=== PATIENT | female | born 1965 | race African-American/Black ===

== ENCOUNTER 2017-11-09 21:13 | Inpatient (IN) | payer MEDICAID, SELFPAY ==
[2017-11-09] MEDS ORDERED: Albuterol Sulfate 2.5 mg/3 ml Neb ONE (21:52)
[2017-11-09] MEDS ORDERED: Albuterol Sulfate 2.5 mg/0.5 ml Neb ONE (21:52)
[2017-11-09 21:55] LABS: Bilirubin Moderate (Negative); Blood, Urine Negative (Negative); Clarity TURBID (Clear); Glucose, Urine (Dipstick) Negative (Negative); Leukocyte Small (Negative); Nitrite Negative (Negative); Protein, Urine (Dipstick) 100 mg/dL (Neg-Trace); Specific Gravity, Urine 1.023 (1.002-1.036); pH, Urine 5.5 (5.0-9.0)
[2017-11-09 21:57] LABS: Bacteria/HPF None Seen HPF (None Seen)
[2017-11-09] MEDS ORDERED: methylPREDNISolone Sod Succ/PF 125 MG/2 ML VIAL ONE (21:57)
[2017-11-09 21:58] LABS: Pathc Cast-AUWi Flag 17.34 (0-2.49)
[2017-11-09 21:59] LABS: Crystals/HPF 2+ AMORPH URATES HPF (Negative); Hyaline Casts/LPF 0-3 HYALINE CAST LPF (0-3 Hyaline); Yeast-All Forms None Seen HPF (None Seen)
[2017-11-09 22:04] LABS: Hemoglobin 12.1 g/dL (12.0-16.0); Mean Corpuscular HGB CONC 30.2 g/dL (32.0-36.0); Mean Corpuscular Hemoglobin 26.9 pg (27.0-31.0); Mean Corpuscular Volume 89.2 fl (81.0-99.0); Mean Platelet Volume 8.3 fL (7.4-10.4); Platelet Count 318 thou/uL (130-400); RBC Distribution Width 14.7 % (11.5-14.5); Red Blood Cell (RBC) Count 4.49 mill/uL (4.20-5.40); White Blood Cell (WBC) Count 30.7 thou/uL (4.8-10.8)
--- NOTE | 2017-11-09 22:09 | RAD ---
CHEST ONE VIEW: 11/09/17 HISTORY: 52-year-old female with history of dyspnea. There is extensive bilateral alveolar parenchymal changes, particularly in the perihilar regions, whi ch certainly could represent bilateral pneumonia. Some degree of bilateral pulmonary edema and pleura l effusions could certainly be present as well. Patient's very large body habitus lowers the sensitiv ity of this study. Heart size is borderline enlarged. IMPRESSION: Extensive, somewhat asymmetric bilateral alveolar parenchymal changes particularly in the perihilar r egions, certainly raising concern for the possibility of extensive bilateral pneumonia. Some degree o f coexistent pulmonary edema and vascular congestion is a consideration as well. Treatment and short term followup recommended. POS: IRINEO
[2017-11-09] MEDS ORDERED: cefTRIAXone\\ROCEPHIN 2 GM in Sodium Chloride 0.9% 100 ML IVPB SCH (22:15)
[2017-11-09 22:16] LABS: ALT (SGPT) 28 U/L (8-55); AST (SGOT) 47 U/L (5-34); Albumin 3.6 g/dL (3.5-5.0); Alkaline Phosphatase 88 U/L (40-150); Anion Gap 14 mmol/L (10-20); BUN (Urea Nitrogen) 63 mg/dL (9.8-20.1); Band 19 % (5-11); Bilirubin, Total 1.4 mg/dL (0.2-1.2); Calc. Creatinine Clearance 0 mL/min (70-130); Calcium 11.8 mg/dL (7.8-10.44); Carbon Dioxide 29 mmol/L (22-29); Chloride 95 mmol/L (98-107); Estimated GFR-MDRD 22; Globulin 5.4 g/dL (2.4-3.5); Glucose 126 mg/dL (70-105); Lymphocytes 6 % (21-51); MDiff Complete? YES; Monocytes 5 % (0-10); Neutrophil 70 % (42-75); Potassium 4.2 mmol/L (3.5-5.1); Sodium 134 mmol/L (136-145)
[2017-11-09] MEDS ORDERED: Azithromycin 500 MG in Sodium Chloride 0.9% 250 ML 250 ML IVPB SCH (23:59)
[2017-11-10] MEDS ORDERED: Guaifenesin DM 100-10/5 ML UDCUP PO PRN (00:56)
[2017-11-10] MEDS ORDERED: Sodium Chloride 0.9% 1,000 ML IV SCH ×3 (01:00→10:15)
[2017-11-10 01:42] VITALS: BMI 53.1
--- NOTE | 2017-11-10 04:36 | HP ---
DATE OF ADMISSION: 11/10/2017 ADMITTING PHYSICIAN: Vladimir Martinez M.D. PRIMARY CARE PHYSICIAN: Tramaine Lyn M.D. CHIEF COMPLAINT: Altered mental status and fever. HISTORY OF PRESENT ILLNESS: The patient is a 52-year-old female brought in by her family for altered mental status. They report that the patient is not responding normally and cannot talk. The patien lidia was seen in the emergency department this past Monday and diagnosed with the flu. She was given a prescription for Tamiflu and was not able to get the prescription filled. She does have a history of asthma and weakness. The patient's family reports that she has not tolerated p.o. intake for appr oximately 4 days. The patient is unable to give an accurate history this is all per family and the e mergency department staff. REVIEW OF SYSTEMS: The following complete review of systems was negative, unless otherwise mentioned in the HPI or below: Constitutional: Weight loss or gain, sense of well-being, ability to conduct usual activities, exerc ise tolerance. Skin/Breast: Rash, itching, changes in hair growth or loss, nail changes, breast lumps, tenderness, swelling, nipple discharge. Eyes: Vision, double vision, tearing, blind spots, pain. ENT/Mouth: Headaches (location, time of onset, duration, precipitating factors), vertigo, lightheade dness, injury. Vision, double vision, tearing, blind spots, pain, nose bleeding, colds, obstruction, discharge, dental difficulties, gingival bleeding, dentures, neck stiffness, pain, tenderness, masses in thyroid or other areas. Cardiovascular: Precordial pain, substernal distress, palpitations, syncope, dyspnea on exertion, or thopnea, nocturnal paroxysmal dyspnea, edema, cyanosis, hypertension, heart murmurs, varicosities, ph lebitis, claudication. Respiratory: Pain, shortness of breath, wheezing, stridor, cough, hemoptysis, fever or night sweats. Gastrointestinal: Poor appetite, dysphagia, indigestion, abdominal pain, heartburn, eructation, naus ea, vomiting, hematemesis, jaundice, constipation, or diarrhea, abnormal stools (carroll-colored, tarry, bloody, greasy, foul smelling), flatulence, hemorrhoids, recent changes in bowel habits. Genitourinary: Urgency, frequency, dysuria, nocturia, hematuria, polyuria, oliguria, unusual (or nicole nge in) color of urine, stones, hesitancy, change in size of stream, dribbling, acute retention or in continence, libido, potency. Musculoskeletal: Pain, swelling, redness or heat of muscles or joints, limitation, of motion, muscul ar weakness, atrophy, cramps. Neurologic/Psychiatric: Convulsions, paralyses, tremor, incoordination, paresthesias, difficulties w ith memory of speech, sensory or motor disturbances, or muscular coordination (ataxia, tremor), emoti onal problems, anxiety, depression, previous psychiatric care, unusual perceptions, hallucinations. Allergy/Immunologic: Skin rash, anemia, bleeding tendency, polydipsia, polyuria, intolerance to heat or cold. PAST MEDICAL HISTORY: The family member denied that the patient had any chronic illnesses. PAST SURGICAL HISTORY: They deny surgical history. PSYCHIATRIC HISTORY: Includes anxiety and depression. SOCIAL HISTORY: Denies alcohol or drug use. No smoking history. FAMILY HISTORY: Unobtainable at this point. HOME MEDICATIONS: None according to family. DRUG ALLERGIES: No known drug allergies. PHYSICAL EXAMINATION: VITAL SIGNS: Temperature 99.0, blood pressure 112/73, pulse 101, respirations 24, satting 93% on 2 l iters. GENERAL: The patient is mildly confused, unable to answer my questions appropriately, morbidly obese . HEENT: Head: Normocephalic, atraumatic. EYES: PERRL. Extraocular muscles intact. ENT: Pharynx normal. Mouth is normal. Nose: There is mucus drainage. NECK: Full range of motion. Trachea midline. CHEST: There are rhonchi and rales present. CARDIOVASCULAR: Sinus tachycardia. No murmurs, regurg, or gallops, difficult exam secondary to body habitus. ABDOMEN: Obese, nontender, hypoactive bowel sounds. EXTREMITIES: No clubbing, cyanosis, 1+ edema bilaterally. NEUROLOGIC: The patient is confused and disoriented. LABORATORY DATA AND IMAGES: CBC shows a white count of 30.7, hemoglobin 12.1, hematocrit 40.1, plate lets 318, bands 19, and lymphocytes 6. CMP shows sodium of 134, potassium 4.2, chloride 95, CO2 of 2 9, BUN 63, creatinine 2.77, glucose 126, calcium 11.8, AST 47, ALT 28, lactic acid 1.3. Urinalysis a mber, turbid with small amount of leukocytes, 100 mg of protein, moderate amount of bilirubin, no ramsey teria. Chest x-ray shows extensive asymmetrical bilateral alveolar parenchymal changes consistent wi th extensive bilateral pneumonia and possible pulmonary edema and vascular congestion. ASSESSMENT: 1. Bilateral pneumonia. 2. Severe sepsis. 3. Acute kidney injury. PLAN: The patient will be admitted to [facility]. She will be treated with community-acquired pneumonia I V antibiotic regimen. We will provide fluid resuscitation. Oxygen supplementation as needed. We wi ll consult Pulmonary Service to assist in this patient's care. The patient will be hydrated secondar y to her acute kidney injury, but we will obtain nephrology input to avoid volume overloading the pat ient as well. The patient's condition is guarded and we will reassess her frequently for alterations in treatment regimen.
[2017-11-10 05:46] LABS: Anion Gap 16 mmol/L (10-20); BUN (Urea Nitrogen) 68 mg/dL (9.8-20.1); Calc. Creatinine Clearance 52 mL/min (70-130); Calcium 11.4 mg/dL (7.8-10.44); Carbon Dioxide 24 mmol/L (22-29); Chloride 100 mmol/L (98-107); Estimated GFR-MDRD 21; Glucose 176 mg/dL (70-105); Potassium 4.8 mmol/L (3.5-5.1); Sodium 135 mmol/L (136-145)
[2017-11-10 07:01] LABS: Band 18 % (5-11); Differential Comment Plasma-cytoid Cells; Hemoglobin 11.1 g/dL (12.0-16.0); Lymphocytes 11 % (21-51); MDiff Complete? YES; Mean Corpuscular Volume 89.6 fl (81.0-99.0); Mean Platelet Volume 8.5 fL (7.4-10.4); Monocytes 3 % (0-10); Neutrophil 65 % (42-75); Platelet Count 277 thou/uL (130-400); RBC Distribution Width 14.8 % (11.5-14.5); Red Blood Cell (RBC) Count 4.26 mill/uL (4.20-5.40); Reflex for Review?? YES; White Blood Cell (WBC) Count 28.9 thou/uL (4.8-10.8)
[2017-11-10] MEDS ORDERED: Meropenem 500 MG in Sodium Chloride 0.9% 100 ML IVPB SCH (08:30)
[2017-11-10] MEDS ORDERED: Vancomycin HCl 500 MG in Sodium Chloride 0.9% 100 ML IVPB SCH (08:30)
[2017-11-10] MEDS ORDERED: FLU VACC QS2017-18 36 mo. & older 0.5 ML SYRINGE IM ONE (09:00)
[2017-11-10] MEDS: guaiFENesin ER 600 MG TAB PO SCH ×2 (09:31→20:43)
[2017-11-10] MEDS: Oseltamivir 75 MG CAP PO SCH (09:31)
[2017-11-10] MEDS ORDERED: Meropenem 500 MG, Admixture Fee 1 EACH in Sterile Water 10 ML SLOW IVP SCH (10:00)
[2017-11-10 10:43] LABS: pH, Arterial 7.27 (7.35-7.45)
[2017-11-10 10:44] LABS: Actual Bicarbonate (HCO3a) 27.2 mEq/L (22-26); Base Excess (BEa) -0.2 mEq/L (0 (+/-) 2.5); CO2 Tension 58.5 mmHg (35.0-45.0); Calcium, Ionized 1.4 mmol/L (1.12-1.30); Hematocrit-ABG 38.5 % (36.0-47.0); Hemoglobin (Hb) 10.5 g/dL (12.0-16.0); O2 Tension (PaO2) 62.8 mmHg (80.0-100.0)
[2017-11-10 10:45] LABS: ALV-art Gradient 92.235 (0-20); Puncture Site RRA
--- NOTE | 2017-11-10 11:58 | CON ---
DATE OF CONSULTATION: 11/10/2017 SERVICE: Pulmonary Medicine. REASON FOR CONSULTATION: Respiratory failure. HISTORY OF PRESENT ILLNESS: The patient is a 52-year-old -[place] female with a past medical history significant for obstructive sleep apnea and morbid obesity. Apparently, she presented to an outpatient setting last week. She was told she had the flu and asked to drink plenty of fluids and orange juice. She presented to the Emergency Department and was brought here by family members because of increasing altered mentation. Ultimately, she was assessed in the Emergency Department. She was given some antibiotics, nebulized medications and doses of some steroids. She was found to have a fever. Because of her altered mentation, they decided to place her in the IMCU for closer observation. ABG has not been performed today. PAST MEDICAL HISTORY: None based on what the family is suggesting to us. PAST SURGICAL HISTORY: Denied by family. SOCIAL HISTORY: Negative for alcohol, tobacco or illicit drug use. FAMILY HISTORY: Noncontributory. ALLERGIES: No known drug allergies. MEDICATIONS: Multiple updates were made. REVIEW OF SYSTEMS: This cannot be obtained as the patient is currently encephalopathic. PHYSICAL EXAMINATION: VITAL SIGNS: Currently afebrile with a T-max yesterday of 100.5 at 1:00 in the morning. Pulse 81, blood pressure 102/72, respirations 22, saturation 97% on 3 liters nasal cannula. GENERAL: The patient is somnolent and encephalopathic with some gentle stimulation. She will open up her eyes and look at you. She will follow some simple commands, and answering one-word sentences. Outside of this, she will drift back off to sleep with no stimulation after a very short period of time. HEENT: Normocephalic and atraumatic. Sclerae are white, conjunctivae pink. Oral and nasal mucosa is moist without lesions. LUNGS: Decent air entry. There is no prolonged expiratory phase, wheezing, rhonchi or crackles. HEART: Normal rate and regular. ABDOMEN: Soft, nontender and nondistended. Bowel sounds are positive. MUSCULOSKELETAL: No cyanosis or clubbing. There is no pitting in the bilateral lower extremities. NEUROLOGIC: Grossly nonfocal. LABORATORY DATA: WBC 28.9, hemoglobin 11.1 and platelet is 277,000. Band count is 18% and roughly stable on top of the neutrophil count of 65%. Creatinine 2.89 with a BUN of 68. Basic metabolic profile is otherwise unremarkable. Calcium 11.4. CBC is unremarkable except for bilirubin that is slightly elevated and minimal proteinuria. Blood cultures x2 are negative to date. IMAGING DATA: Chest x-ray demonstrates soft tissue attenuation. This film was severely rotated. There is likely a parenchymal infiltrate present. ASSESSMENT: 1. Acute hypoxic respiratory failure. 2. Community acquired pneumonia. 3. Influenza. 4. Severe sepsis. 5. Metabolic encephalopathy. 6. Acute kidney injury. 7. Morbid obesity. 8. Obstructive sleep apnea, witnessed at bedside. PLAN: We will get an ABG and will initiate the patient on noninvasive therapy with BiPAP. We will give her a slightly elevated expiratory pressure. Agree with other supportive measures including antibiotics, nebulized medications and steroids. We will treat community-acquired pneumonia in addition to influenza. Pulmonary Critical Care will continue to follow while she remains in this location. 70 minutes have been devoted to this patient in various activities. I personally reviewed all imaging studies and laboratory data noted within this document. For at least half of this time, I was interacting with the patient at bedside or coordinating care with the care team. For the remainder of the time, I was immediately available to the patient in the hospital unit. PRESTON
[2017-11-10] MEDS: Sodium Chloride 0.9% 1,000 ML IV SCH (13:05)
--- NOTE | 2017-11-10 14:41 | PDOC.PN ---
- Subjective Encounter Start Date: 11/10/17 Encounter Start Time: 12:00 Subjective: lethargic, sob+ -: not fully oriented - Objective Resuscitation Status: Resuscitation Status FULL:Full Resuscitation MAR Reviewed: Yes Vital Signs & Weight: Vital Signs (12 hours) Temp Pulse Resp BP Pulse Ox 11/10/17 11:49 97 11/10/17 11:10 96.7 F L 79 22 H 107/67 97 11/10/17 10:39 80 11/10/17 08:00 97.2 F L 81 22 H 97 11/10/17 07:31 97.2 F L 81 22 H 102/72 97 11/10/17 04:00 99.1 F 85 24 H 122/72 96 Weight Weight 319 lb 11.2 oz Result Diagrams: 11/10/17 05:02 11/10/17 05:02 Phys Exam - Physical Examination HEENT: PERRLA, sclera anicteric Neck: no JVD, supple Respiratory: no wheezing rhonchi++ Cardiovascular: RRR, no significant murmur Gastrointestinal: soft, non-tender, positive bowel sounds Musculoskeletal: no edema, pulses present Neurological: non-focal, moves all 4 limbs Dx/Plan (1) PNA (pneumonia) Code(s): J18.9 - PNEUMONIA, UNSPECIFIED ORGANISM Status: Acute Qualifiers: Pneumonia type: due to unspecified organism Laterality: bilateral (2) Acute respiratory failure with hypoxia Code(s): J96.01 - ACUTE RESPIRATORY FAILURE WITH HYPOXIA Status: Acute (3) Morbid obesity Code(s): E66.01 - MORBID (SEVERE) OBESITY DUE TO EXCESS CALORIES Status: Chronic (4) NAYELI (acute kidney injury) Code(s): N17.9 - ACUTE KIDNEY FAILURE, UNSPECIFIED Status: Acute (5) Sepsis Code(s): A41.9 - SEPSIS, UNSPECIFIED ORGANISM Status: Acute Qualifiers: Sepsis type: sepsis due to unspecified organism Qualified Code(s): A41.9 - Sepsis, unspecified organism - Plan is on ceftriaxone and zithromax with tamiflu -: await viral pcr -: bipap, likely has deshaun/hypovent syndrome -: continue iv hydration, renal consult -: wbc is 28k with 18% bands * . Review of Systems - Medications/Allergies Allergies/Adverse Reactions: Allergies Allergy/AdvReac Type Severity Reaction Status Date / Time No Known Drug Allergies Allergy Verified 11/10/17 01:58 Medications: Current Medications Acetaminophen (Tylenol) 650 mg PO Q4H PRN PRN Reason: Headache/Fever or Pain Albuterol/Ipratropium (Duoneb) 3 ml NEB [id number] DONTA Guaifenesin (Mucinex) 600 mg PO Q12HR [facility] Last Admin: 11/10/17 09:31 Dose: 600 mg Guaifenesin/Dextromethorphan (Robitussin Dm) 15 ml PO Q4H PRN PRN Reason: Cough Azithromycin 500 mg/ Sodium (Chloride) 250 mls @ 250 mls/hr IVPB Q24HR DONTA Ceftriaxone Sodium 2 gm/ (Sodium Chloride) 100 mls @ 200 mls/hr IVPB Q24HR DONTA Sodium Chloride (Normal Saline 0.9%) 1,000 mls @ 75 mls/hr IV .[id number] [facility] Miscellaneous Medication (Pharmacy To Dose) 1 each IVPB PRN PRN PRN Reason: Pharmacy to dose Oseltamivir Phosphate (Tamiflu) 75 mg PO Q24HR [facility] Stop: 11/19/17 09:01 Last Admin: 11/10/17 09:31 Dose: 75 mg Prednisone (Prednisone) 40 mg PO QAM-WM DONTA Sodium Chloride (Flush - Normal Saline) 10 ml IVF Q12HR DONTA Sodium Chloride (Flush - Normal Saline) 10 ml IVF PRN PRN PRN Reason: Saline Flush
--- NOTE | 2017-11-10 20:00 | CON ---
DATE OF CONSULTATION: 11/10/2017 CONSULTING PHYSICIAN: Matthew Adams M.D. REQUESTING PHYSICIAN: Dr. Gilbert. REASON FOR CONSULTATION: Acute on chronic kidney disease versus acute kidney injury. IMPRESSION: 1. Acute on chronic kidney disease versus chronic kidney disease stage 3/4. This acute kidney injur y is likely in the context of cytokine-mediated injury due to infection. 2. Respiratory distress in the context of recent flu infestation. 3. Mild hyponatremia. 4. Hypercalcemia. PLAN: 1. The patient seems to be intravascularly depleted and therefore will benefit from intravascular de pletion with IV fluid. 2. Renally dose all medications per low GFR. 3. Avoid potentially nephrotoxic agents. 4. Further management to be dependent on the clinical course. HISTORY OF PRESENT ILLNESS: History is that of a 52-year-old female patient with a history of obstru ctive sleep apnea, who was recently diagnosed with flu and presented here with respiratory distress a nd some mental status change. The patient did receive antibiotics and got admitted to the IMCU. [facility] was noted to have elevated creatinine of 2.8 and as a result of this, decision was taken to invo lve Renal in the management of this case. PAST MEDICAL HISTORY: Significant for morbid obesity, obstructive sleep apnea, recent diagnosis of f nilam. MEDICATIONS: Reviewed and as documented on [facility]. SOCIAL HISTORY: No alcohol, no tobacco, no illicit drug use. FAMILY HISTORY: Not significantly related to presenting illness. ALLERGIES: No known drug allergies. PHYSICAL EXAMINATION: GENERAL: The patient was found to be on BiPAP, in some respiratory distress noted with following vit al signs. VITAL SIGNS: Afebrile with temperature 96.7, pulse 79, respiratory rate of 23, O2 sat 98% with the b lood pressure of 116/68. HEENT: Remarkable for BiPAP mask in place. CARDIOVASCULAR SYSTEM: First and second heart sounds were heard. RESPIRATORY SYSTEM: Revealed a lot of transmitted sounds. DIGESTIVE SYSTEM: Revealed an obese abdomen. EXTREMITIES: No peripheral edema. SKIN EXAMINATION: No new gross rash. LYMPHATICS: No peripheral lymphadenopathy. SUMMARY: A 52-year-old female patient, who presented here with respiratory distress noted with evide nce of acute kidney injury versus acute on chronic kidney disease. Thank you for this consultation. We will follow with you.
[2017-11-10] MEDS: cefTRIAXone\\ROCEPHIN 2 GM in Sodium Chloride 0.9% 100 ML IVPB SCH (20:39)
[2017-11-10] MEDS: Azithromycin 500 MG in Sodium Chloride 0.9% 250 ML 250 ML IVPB SCH (22:41)
[2017-11-10] MEDS ORDERED: Vancomycin HCl 1.5 GM in Sodium Chloride 0.9% 250 ML 300 ML IVPB SCH (23:00)
[2017-11-11] MEDS: Sodium Chloride 0.9% 1,000 ML IV SCH (05:10)
[2017-11-11 05:13] LABS: Anion Gap 13 mmol/L (10-20); BUN (Urea Nitrogen) 81 mg/dL (9.8-20.1); Calc. Creatinine Clearance 64 mL/min (70-130); Calcium 11.1 mg/dL (7.8-10.44); Carbon Dioxide 27 mmol/L (22-29); Chloride 104 mmol/L (98-107); Estimated GFR-MDRD 26; Glucose 135 mg/dL (70-105); Magnesium 2.6 mg/dL (1.6-2.6); Phosphorus 2.5 mg/dL (2.3-4.7); Potassium 4.6 mmol/L (3.5-5.1); Sodium 139 mmol/L (136-145)
[2017-11-11 10:07] LABS: Band 16 % (5-11); Hemoglobin 9.9 g/dL (12.0-16.0); Hypochromia MODERATE=16-30 cells (100X) (0-5/hpf); Lymphocytes 15 % (21-51); MDiff Complete? YES; Mean Corpuscular HGB CONC 30.2 g/dL (32.0-36.0); Mean Corpuscular Hemoglobin 26.9 pg (27.0-31.0); Mean Corpuscular Volume 89.2 fl (81.0-99.0); Mean Platelet Volume 8.5 fL (7.4-10.4); Monocytes 1 % (0-10); Neutrophil 68 % (42-75); Nucleated RBC 2 % (0); Platelet Count 270 thou/uL (130-400); Polychromasia SLIGHT = 2-3 cells (100X) (0-2/hpf); RBC Distribution Width 14.7 % (11.5-14.5); Red Blood Cell (RBC) Count 3.69 mill/uL (4.20-5.40); Reflex for Review?? YES; Target Cells SLIGHT = 2-5 cells (100X) (0-1/hpf); White Blood Cell (WBC) Count 24.1 thou/uL (4.8-10.8)
[2017-11-11] MEDS: Oseltamivir 75 MG CAP PO SCH (10:47)
[2017-11-11] MEDS: guaiFENesin ER 600 MG TAB PO SCH ×2 (10:47→21:47)
[2017-11-11] MEDS: predniSONE 20 MG TAB PO SCH (10:47)
[2017-11-11] MEDS: Sodium Chloride 0.45% 1,000 ML IV SCH (13:32)
--- NOTE | 2017-11-11 13:45 | PRG ---
DATE OF SERVICE: 11/11/2017 SERVICE: Pulmonary Medicine. INTERVAL HISTORY: The patient is doing fine from a respiratory standpoint. She denies any current f laura, chills, nausea, vomiting or chest discomfort. Otherwise, she is much more awake, alert, and a ttentive this morning. She really like using the CPAP machine or BiPAP machine and would like to use same in the outpatient setting. That being said, she will need to prove that she has sleep apnea du ring polysomnogram to get that done. I explained that to her today. Otherwise, there has been no in terval change to her condition. Her kidney injury is improving. PHYSICAL EXAMINATION: VITAL SIGNS: Afebrile, pulse 79, blood pressure 144/82, respirations 24, saturation 99% on 3 liters nasal cannula. GENERAL: The patient is awake, alert, in no apparent distress. LUNGS: Decent air entry. There is no prolonged expiratory phase. I do not appreciate crackles or w heezing today. HEART: Normal rate, regular. ABDOMEN: Soft, nontender, nondistended. Bowel sounds are positive. MUSCULOSKELETAL: No cyanosis or clubbing. No pitting in the bilateral lower extremities. NEUROLOGIC: Grossly nonfocal. LABORATORY DATA: WBC 24.1, hemoglobin 9.9, platelets 270,000 and improving. Band count has dropped to 16%. A pH 7.27, pCO2 58, pO2 63, creatinine 2.37. Basic metabolic profile is otherwise unremarka ble. BUN has actually gone up to 81. Magnesium and phosphorus fall within the normal limits. Blood cultures x2 and urine culture negative. Influenza A is positive. ASSESSMENT: 1. Acute hypoxic respiratory failure. 2. Chronic hypercapnic respiratory failure. 3. Metabolic encephalopathy, resolved. 4. Acute kidney injury, improving. 5. Morbid obesity. 6. Obstructive sleep apnea. 7. Community-acquired pneumonia secondary to influenza A. PLAN: The patient is doing fantastic from a respiratory standpoint. At this point, she can transiti on to the medical unit. She will remain inhouse for an additional 24-48 hours. We will focus effort s on mobilizing the patient moving forward. Pulmonary or Critical Care will continue to follow for t he time being and ultimately on discharge from the hospital should benefit from a sleep evaluation. She can follow up with me in clinic if she so desirous.
--- NOTE | 2017-11-11 14:42 | PDOC.PN ---
- Subjective Encounter Start Date: 11/11/17 Encounter Start Time: 12:20 Subjective: is more awake and alert this morning -: no c/o sob - Objective Resuscitation Status: Resuscitation Status FULL:Full Resuscitation MAR Reviewed: Yes Vital Signs & Weight: Vital Signs (12 hours) Temp Pulse Resp BP Pulse Ox 11/11/17 12:00 80 128/69 95 11/11/17 11:05 98.5 F 79 24 H 144/82 H 99 11/11/17 08:56 96 11/11/17 08:24 75 98 11/11/17 08:23 75 21 H 98 11/11/17 08:00 97.0 F L 75 24 H 11/11/17 07:00 97.0 F L 72 26 H 129/69 97 11/11/17 04:00 99.1 F 75 20 106/64 99 Weight Weight 320 lb 11.2 oz I&O: 11/10/17 11/11/17 11/12/17 06:59 06:59 06:59 Intake Total 600 900 Output Total 200 945 500 Balance 400 -45 -500 Result Diagrams: 11/11/17 08:56 11/11/17 04:25 Phys Exam - Physical Examination HEENT: PERRLA, moist MMs Neck: no JVD, supple Respiratory: no wheezing, no rales Cardiovascular: RRR, no significant murmur Gastrointestinal: soft, non-tender, positive bowel sounds Musculoskeletal: pulses present, edema present Neurological: non-focal, moves all 4 limbs Psychiatric: A&O x 3 Dx/Plan (1) PNA (pneumonia) Code(s): J18.9 - PNEUMONIA, UNSPECIFIED ORGANISM Status: Acute Qualifiers: Pneumonia type: due to unspecified organism Laterality: bilateral (2) Acute respiratory failure with hypoxia Code(s): J96.01 - ACUTE RESPIRATORY FAILURE WITH HYPOXIA Status: Acute (3) Morbid obesity Code(s): E66.01 - MORBID (SEVERE) OBESITY DUE TO EXCESS CALORIES Status: Chronic (4) NAYELI (acute kidney injury) Code(s): N17.9 - ACUTE KIDNEY FAILURE, UNSPECIFIED Status: Acute (5) Sepsis Code(s): A41.9 - SEPSIS, UNSPECIFIED ORGANISM Status: Acute Qualifiers: Sepsis type: sepsis due to unspecified organism Qualified Code(s): A41.9 - Sepsis, unspecified organism (6) Influenza A Code(s): J10.1 - FLU DUE TO OTH IDENT INFLUENZA VIRUS W OTH RESP MANIFEST Status: Acute - Plan on tamiflu, azithromycin and ceftriaxone -: gentle iv hydration -: watch for renal function -: PT eval, mobilize as tolerated -: may tx to med floor, echo pending * . Review of Systems - Medications/Allergies Allergies/Adverse Reactions: Allergies Allergy/AdvReac Type Severity Reaction Status Date / Time No Known Drug Allergies Allergy Verified 11/10/17 01:58 Medications: Current Medications Acetaminophen (Tylenol) 650 mg PO Q4H PRN PRN Reason: Headache/Fever or Pain Albuterol/Ipratropium (Duoneb) 3 ml NEB [id number] [facility] Last Admin: 11/11/17 08:23 Dose: 3 ml Guaifenesin (Mucinex) 600 mg PO Q12HR [facility] Last Admin: 11/11/17 10:47 Dose: 600 mg Azithromycin 500 mg/ Sodium (Chloride) 250 mls @ 250 mls/hr IVPB Q24HR [facility] Last Admin: 11/10/17 22:41 Dose: 250 mls Ceftriaxone Sodium 2 gm/ (Sodium Chloride) 100 mls @ 200 mls/hr IVPB Q24HR [facility] Last Admin: 11/10/17 20:39 Dose: 100 mls Sodium Chloride (1/2 Normal Saline) 1,000 mls @ 75 mls/hr IV .[id number] [facility] Last Admin: 11/11/17 13:32 Dose: 1,000 mls Miscellaneous Medication (Pharmacy To Dose) 1 each IVPB PRN PRN PRN Reason: Pharmacy to dose Oseltamivir Phosphate (Tamiflu) 75 mg PO Q24HR [facility] Stop: 11/19/17 09:01 Last Admin: 11/11/17 10:47 Dose: 75 mg Prednisone (Prednisone) 40 mg PO QAM-WM [facility] Last Admin: 11/11/17 10:47 Dose: 40 mg Sodium Chloride (Flush - Normal Saline) 10 ml IVF Q12HR [facility] Last Admin: 11/11/17 12:38 Dose: Not Given Sodium Chloride (Flush - Normal Saline) 10 ml IVF PRN PRN PRN Reason: Saline Flush
--- NOTE | 2017-11-11 15:07 | EKG ---
Test Reason : AMS Blood Pressure : / mmHG Vent. Rate : 111 BPM Atrial Rate : 111 BPM P-R Int : 136 ms QRS Dur : 086 ms QT Int : 304 ms P-R-T Axes : 056 019 116 degrees QTc Int : 413 ms Sinus tachycardia Possible Left atrial enlargement Anteroseptal infarct , age undetermined Abnormal ECG Confirmed by GERMAN PATRICK MD ([id number]), market editor JAVIER HOPE ([id number]) on 11/11/2017 3:07:48 PM Referred By: CELINA Confirmed By:GERMAN PATRICK MD
[2017-11-11] MEDS: cefTRIAXone\\ROCEPHIN 2 GM in Sodium Chloride 0.9% 100 ML IVPB SCH (21:46)
[2017-11-11] MEDS: Azithromycin 500 MG in Sodium Chloride 0.9% 250 ML 250 ML IVPB SCH (23:42)
[2017-11-11] MEDS: Acetaminophen 325 MG TAB PO PRN (23:42)
[2017-11-12] MEDS: Sodium Chloride 0.45% 1,000 ML IV SCH ×2 (04:35→17:12)
[2017-11-12] MEDS: Acetaminophen 325 MG TAB PO PRN (05:01)
[2017-11-12 06:26] LABS: Anion Gap 12 mmol/L (10-20); BUN (Urea Nitrogen) 60 mg/dL (9.8-20.1); Calc. Creatinine Clearance 101 mL/min (70-130); Calcium 10.5 mg/dL (7.8-10.44); Carbon Dioxide 26 mmol/L (22-29); Chloride 108 mmol/L (98-107); Estimated GFR-MDRD 44; Glucose 98 mg/dL (70-105); Potassium 3.6 mmol/L (3.5-5.1); Sodium 142 mmol/L (136-145)
[2017-11-12 07:03] LABS: Anisocytosis SLIGHT = 6-15 cells (100X) (0-5/hpf); Band 11 % (5-11); Hemoglobin 9.6 g/dL (12.0-16.0); Lymphocytes 15 % (21-51); MDiff Complete? YES; Mean Corpuscular HGB CONC 29.4 g/dL (32.0-36.0); Mean Corpuscular Hemoglobin 25.9 pg (27.0-31.0); Mean Corpuscular Volume 88.2 fl (81.0-99.0); Mean Platelet Volume 8.4 fL (7.4-10.4); Monocytes 6 % (0-10); Neutrophil 68 % (42-75); Nucleated RBC 3 % (0); PLT Morphology Comment Appears Adequate; Platelet Count 302 thou/uL (130-400); RBC Distribution Width 14.6 % (11.5-14.5); Red Blood Cell (RBC) Count 3.69 mill/uL (4.20-5.40); White Blood Cell (WBC) Count 20.7 thou/uL (4.8-10.8)
[2017-11-12] MEDS: predniSONE 20 MG TAB PO SCH (09:03)
[2017-11-12] MEDS: guaiFENesin ER 600 MG TAB PO SCH ×2 (09:04→21:14)
[2017-11-12] MEDS: Oseltamivir 75 MG CAP PO SCH ×2 (09:04→21:15)
--- NOTE | 2017-11-12 14:55 | PDOC.PN ---
- Subjective Encounter Start Date: 11/12/17 Encounter Start Time: 14:54 Subjective: feels almost the same.wants to go home - Objective Resuscitation Status: Resuscitation Status FULL:Full Resuscitation MAR Reviewed: Yes Vital Signs & Weight: Vital Signs (12 hours) Temp Pulse Resp BP Pulse Ox Pulse Ox Pulse Ox 11/12/17 12:00 98.3 F 76 18 178/102 H 93 L 11/12/17 10:31 93 L 92 L 11/12/17 08:00 98.3 F 76 18 149/71 H 91 L 11/12/17 04:00 98.1 F 82 16 152/96 H 92 L Weight Weight 320 lb 11.2 oz I&O: 11/11/17 11/12/17 11/13/17 06:59 06:59 06:59 Intake Total 900 1140 Output Total 945 1600 700 Balance -45 -194 -700 Result Diagrams: 11/12/17 05:19 11/12/17 05:19 Additional Labs: Microbiology 11/10/17 09:47 Nasopharyngeal swab Respiratory Virus Panel (PCR) ([facility]) - Final 11/09/17 21:38 Urine Straight Catheter Urine Culture - Final NO GROWTH AT 36 HOURS 11/09/17 21:41 Venous blood - Right Arm Blood Culture - Preliminary NO GROWTH AT 48 HOURS 11/09/17 21:41 Venous blood - Left Arm Blood Culture - Preliminary NO GROWTH AT 48 HOURS Laboratory Tests 11/09/17 11/10/17 11/11/17 21:41 05:02 04:25 Creatinine 2.77 H 2.89 H 2.37 H 11/12/17 05:19 Creatinine 1.49 H Phys Exam - Physical Examination weak and tired looking HEENT: PERRLA, moist MMs, sclera anicteric, oral pharynx no lesions Neck: no JVD decreased at bases. difficult to auscultate d/t obesity Cardiovascular: RRR, no significant murmur Gastrointestinal: soft, non-tender, no distention, positive bowel sounds Musculoskeletal: no edema, pulses present Neurological: non-focal, normal sensation, moves all 4 limbs Psychiatric: normal affect, A&O x 3 Dx/Plan (1) Acute respiratory failure with hypoxia Code(s): J96.01 - ACUTE RESPIRATORY FAILURE WITH HYPOXIA Status: Acute (2) NAYELI (acute kidney injury) Code(s): N17.9 - ACUTE KIDNEY FAILURE, UNSPECIFIED Status: Acute (3) Influenza A Code(s): J10.1 - FLU DUE TO OTH IDENT INFLUENZA VIRUS W OTH RESP MANIFEST Status: Acute (4) PNA (pneumonia) Code(s): J18.9 - PNEUMONIA, UNSPECIFIED ORGANISM Status: Acute Qualifiers: Pneumonia type: due to unspecified organism Laterality: bilateral (5) Sepsis Code(s): A41.9 - SEPSIS, UNSPECIFIED ORGANISM Status: Acute Qualifiers: Sepsis type: sepsis due to unspecified organism Qualified Code(s): A41.9 - Sepsis, unspecified organism (6) Morbid obesity Code(s): E66.01 - MORBID (SEVERE) OBESITY DUE TO EXCESS CALORIES Status: Chronic - Plan PT/OT, respiratory therapy, incentive spirometry, DVT proph w/SCDs Pt decided to leave AMA.counselled against it.Family won't pick her up -: Lost IV access and won't let new IV in.change ABx to PO -: cont PO steroids,nebs etc. -: likley home tomorrow but not ready today.still requiring oxygen -: PCCM following * .renal Fx improving. ECHO w NL EF.Monitor. Review of Systems - Review of Systems Constitutional: weakness, malaise. negative: fever, chills, sweats, other Respiratory: Cough, Shortness of Breath, SOB with Excertion, Wheezing Cardiovascular: negative: chest pain, palpitations, orthopnea, paroxysmal nocturnal dyspnea, edema, light headedness, other Gastrointestinal: Nausea. negative: Vomiting, Abdominal Pain, Diarrhea, Constipation, Melena, Hematochezia, Other Genitourinary: negative: Dysuria, Frequency, Incontinence, Hematuria, Retention , Other Musculoskeletal: negative: Neck Pain, Shoulder Pain, Arm Pain, Back Pain, Hand Pain, Leg Pain, Foot Pain, Other Neurological: negative: Weakness, Numbness, Incoordination, Change in Speech, Confusion, Seizures, Other - Medications/Allergies Allergies/Adverse Reactions: Allergies Allergy/AdvReac Type Severity Reaction Status Date / Time No Known Drug Allergies Allergy Verified 11/10/17 01:58 Medications: Current Medications Acetaminophen (Tylenol) 650 mg PO Q4H PRN PRN Reason: Headache/Fever or Pain Last Admin: 11/12/17 05:01 Dose: 650 mg Albuterol/Ipratropium (Duoneb) 3 ml NEB [id number] [facility] Last Admin: 11/12/17 06:59 Dose: Not Given Cefdinir (Omnicef) 300 mg PO BID [facility] Guaifenesin (Mucinex) 600 mg PO Q12HR [facility] Last Admin: 11/12/17 09:04 Dose: 600 mg Sodium Chloride (1/2 Normal Saline) 1,000 mls @ 75 mls/hr IV .[id number] [facility] Last Admin: 11/12/17 04:35 Dose: 1,000 mls Miscellaneous Medication (Pharmacy To Dose) 1 each IVPB PRN PRN PRN Reason: Pharmacy to dose Oseltamivir Phosphate (Tamiflu) 75 mg PO Q24HR [facility] Stop: 11/19/17 09:01 Last Admin: 11/12/17 09:04 Dose: 75 mg Prednisone (Prednisone) 40 mg PO QAM-WM [facility] Last Admin: 11/12/17 09:03 Dose: 40 mg Sodium Chloride (Flush - Normal Saline) 10 ml IVF Q12HR [facility] Last Admin: 11/12/17 09:04 Dose: 10 ml Sodium Chloride (Flush - Normal Saline) 10 ml IVF PRN PRN PRN Reason: Saline Flush
[2017-11-12] MEDS ORDERED: cloNIDine 0.1 MG TAB PO PRN (16:45)
[2017-11-12] MEDS ORDERED: NIFEdipine XL 60 MG TAB PO SCH (17:45)
[2017-11-12] MEDS ORDERED: Potassium Chloride 20 MEQ TAB PO SCH (20:00)
--- NOTE | 2017-11-12 20:38 | PRG ---
DATE OF SERVICE: 11/12/2017 SUBJECTIVE: Fara Iniguez was seen and examined, the only complaint is that of shortness of breat h. Earlier today, the patient threatened to leave. The patient was noted with the following vital s igns. OBJECTIVE: VITAL SIGNS: Afebrile, temperature 98.3, pulse 81, respiratory rate 20, O2 saturation 94% with a blo od pressure 182/115. HEENT: Unremarkable with moist oral mucosa. Neck is supple. No conjunctival injection or icterus. CARDIOVASCULAR: First and second heart sounds were heard. RESPIRATORY: Reveals some scattered rhonchi. DIGESTIVE: Revealed an obese abdomen. EXTREMITIES: No peripheral edema. SKIN: No new gross rash. LYMPHATICS: No peripheral lymphadenopathy. IMPRESSION: 1. Acute on chronic kidney disease, which seems to be much improved. 2. Hypertension, suboptimally controlled. 3. Morbid obesity. 4. Respiratory failure in the context of body habitus. PLAN: 1. Discontinue IV fluid as the patient is currently hypertensive. 2. Renally dose all medications and avoid potentially nephrotoxic agents. 3. Further management to be dependent on the clinical course.
--- NOTE | 2017-11-12 21:10 | PRG ---
DATE OF SERVICE: 11/12/2017 SERVICE: Pulmonary Medicine. INTERVAL HISTORY: The patient apparently attempted to leave the hospital today against medical advic e. Her saturations were extraordinarily low. She apparently was not making very much since and was confused about the circumstances. Either way, she now has a 1:1 sitter. She has been in bed ever si nce this had been occurred. She is breathing comfortably and has no apparent distress. She has been sitting in the chair next to the exit for the duration of the day and her saturations have been unre markable. PHYSICAL EXAMINATION: VITAL SIGNS: Afebrile, pulse 81, blood pressure 192/115, respirations 20, saturation 96% on room air . GENERAL: The patient is awake, alert, in no apparent distress. LUNGS: Decent air entry. There is no prolonged expiratory phase today. HEART: Normal rate, regular. ABDOMEN: Soft, nontender, nondistended. Bowel sounds are positive. MUSCULOSKELETAL: No cyanosis or clubbing. No pitting in the bilateral lower extremities. NEUROLOGIC: Grossly nonfocal. LABORATORY DATA: WBC 20.7, hemoglobin 9.6, platelets 302,000. Neutrophil count is dropping with a b and count that has improved to 11%. Creatinine 1.49 and improving. BUN is also better at 60. Basic metabolic profile is otherwise unremarkable. Her potassium is 3.6. Calcium is starting to improve to 10.5. Respiratory virus panel is positive for influenza A. ASSESSMENT: 1. Acute hypoxic respiratory failure. 2. Chronic hypercapnic respiratory failure. 3. Metabolic encephalopathy, resolved. 4. Acute kidney injury, improving. 5. Morbid obesity. 6. Obstructive sleep apnea. 7. Community-acquired pneumonia secondary to influenza A. DISCUSSION AND PLAN: We will replace the one dose of potassium. In the morning, if her white blood cell count continues to trend downward and she continues to do well, she could be considered for guzman sition out of the hospital. Pulmonary will continue to follow while she remains in this location. U ltimately, she would benefit from a polysomnogram in the outpatient setting.
[2017-11-12] MEDS: Carvedilol 6.25 MG TAB PO SCH (21:14)
[2017-11-12] MEDS: Cefdinir 300 MG CAP PO SCH (21:14)
[2017-11-13 06:30] LABS: Anion Gap 10 mmol/L (10-20); BUN (Urea Nitrogen) 40 mg/dL (9.8-20.1); Calc. Creatinine Clearance 120 mL/min (70-130); Calcium 10.8 mg/dL (7.8-10.44); Carbon Dioxide 28 mmol/L (22-29); Chloride 108 mmol/L (98-107); Estimated GFR-MDRD 54; Glucose 89 mg/dL (70-105); Potassium 3.9 mmol/L (3.5-5.1); Sodium 142 mmol/L (136-145)
[2017-11-13] MEDS: Cefdinir 300 MG CAP PO SCH (08:42)
[2017-11-13] MEDS: predniSONE 20 MG TAB PO SCH (08:42)
[2017-11-13] MEDS: Oseltamivir 75 MG CAP PO SCH (08:42)
[2017-11-13] MEDS: Carvedilol 6.25 MG TAB PO SCH (08:43)
[2017-11-13] MEDS: guaiFENesin ER 600 MG TAB PO SCH (08:43)
[2017-11-13] MEDS: Acetaminophen 325 MG TAB PO PRN (08:43)
[2017-11-13] MEDS ORDERED: NIFEdipine XL 60 MG TAB PO SCH (09:00)
[2017-11-13 09:51] LABS: Hemoglobin 9.7 g/dL (12.0-16.0); Mean Corpuscular HGB CONC 29.9 g/dL (32.0-36.0); Mean Corpuscular Hemoglobin 26.6 pg (27.0-31.0); Mean Corpuscular Volume 88.8 fl (81.0-99.0); Platelet Count 339 thou/uL (130-400); RBC Distribution Width 14.8 % (11.5-14.5); Red Blood Cell (RBC) Count 3.64 mill/uL (4.20-5.40); White Blood Cell (WBC) Count 16.4 thou/uL (4.8-10.8)
[2017-11-13 10:57] LABS: Band 8 % (5-11); Hypochromia SLIGHT = 6-15 cells (100X) (0-5/hpf); Lymphocytes 16 % (21-51); MDiff Complete? YES; Metamyelocyte 4 % (0-0); Monocytes 5 % (0-10); Myelocyte 5 % (0-0); Neutrophil 60 % (42-75); Nucleated RBC 1 % (0); Polychromasia SLIGHT = 2-3 cells (100X) (0-2/hpf); Reactive Lymphocytes 2 % (0-10)
--- NOTE | 2017-11-13 11:03 | PRG ---
DATE OF SERVICE: 11/13/2017 SERVICE: Pulmonary Medicine INTERVAL HISTORY: The patient is doing really well from a respiratory standpoint. She is on room air. She denies any current chest pain, shortness of breath, nausea or vomiting. Otherwise, there were no overnight events. She is slowly returning to her usual state of health. PHYSICAL EXAMINATION: VITAL SIGNS: Afebrile, pulse 75, blood pressure 168/103, respirations 16, saturation 98% on 3 liters nasal cannula. GENERAL: The patient is awake, alert, in no apparent distress. LUNGS: Decent air entry. There is no prolonged expiratory phase or wheezing present. HEART: Normal rate, regular. ABDOMEN: Soft, nontender, nondistended. Bowel sounds are positive. MUSCULOSKELETAL: No cyanosis or clubbing. There is trace pitting in the bilateral lower extremities. NEUROLOGIC: Nonfocal. LABORATORY DATA: WBC is down trending to 16.4, hemoglobin 9.7 and stable. Platelets 339,000. Creatinine continues to improve to 1.26, BUN 40. Basic metabolic profile is otherwise stable/unremarkable. Calcium is 10.8. Respiratory virus panel was positive for influenza. A. Blood cultures x2 and urine culture are negative. ASSESSMENT: 1. Acute hypoxic respiratory failure, resolved. 2. Chronic hypercapnic respiratory failure. 3. Metabolic encephalopathy, resolved. 4. Acute kidney injury, improving. 5. Morbid obesity. 6. Community-acquired pneumonia secondary to influenza A. 7. Obstructive sleep apnea. DISCUSSION AND PLAN: The patient can be transitioned home today. At this point , she has no further requirements for inpatient Pulmonary Critical Care opinion. As such, I will sign off. I would like for the patient to undergo an outpatient polysomnogram, but currently she is unfunded. I told her that out of pocket expenses for CPAP equipment are running in the thousands of dollars range. She is unable afford that out of pocket. As such, I have suggested that she touch base with an insurance company during open enrollment so she can work towards getting on therapy. She understands that her weight is playing a role in her respiratory failure. I told her that if she continues to put on weight at some point, she will be too weak to breathe and she will develop a chronic respiratory failure that cannot be fixed without positive pressure requiring tracheostomy. I am hopeful that this does not become her reality. PRESTON
[2017-11-13 12:07] VITALS: TEMP 98.4
[2017-11-13 14:51] VITALS: BP 140/96
--- NOTE | 2017-11-13 22:02 | DIS ---
DATE OF ADMISSION: 11/10/2017 DATE OF DISCHARGE: 11/13/2017 CONDITION AT THE TIME OF DISCHARGE: Stable and improved. DISCHARGE DIAGNOSES: 1. Acute hypoxic respiratory failure. 2. Acute kidney insufficiency. 3. Influenza A. 4. Community-acquired pneumonia. 5. Sepsis secondary to pneumonia and influenza. 6. Morbid obesity. 7. Essential hypertension. 8. Obstructive sleep apnea. PRIMARY CARE PHYSICIAN: Tramaine Lyn MD DISCHARGE MEDICATIONS: As follows; 1. Medrol Dosepak. 2. Mucinex 600 mg p.o. b.i.d. for 7 more days. 3. Tamiflu 75 mg p.o. b.i.d. for 5 more doses to complete 10-dose course. 4. Nifedipine 60 mg daily. 5. Coreg 6.25 mg p.o. b.i.d. 6. Omnicef 300 mg p.o. b.i.d. CONSULTATIONS IN-HOUSE: Include Pulmonary Medicine, Dr. Arita. PROCEDURES DONE: In the hospital include; transthoracic echocardiogram which showed EF of 60% with m oderate dilatation of the left atrium, otherwise unremarkable. HISTORY OF PRESENT ILLNESS: Ms. Iniguez is a 52-year-old -[place] female without any signific ant past medical history who presented to the emergency room for complaints of altered mental status. Upon presentation to the emergency room, the family gave the history that she has received a prescr iption for Tamiflu but was not able to get it filled. She did give history of asthma and weakness an d poor p.o. intake upon presentation. Nevertheless, she was found to have bilateral pulmonary infilt rates on the chest x-ray along with pulmonary vascular congestion as well as evidence of acute kidney insufficiency with BUN of 63 and creatinine of 2.77. Her lactic acid was 1.3. She was admitted wit h a presumptive diagnosis of severe sepsis due to pneumonia and started on IV antibiotics empirically as well as IV fluid and was admitted to the intermediate care unit. Please see admission history an d physical for further details. HOSPITAL COURSE: The patient was stabilized and eventually transitioned to medical floor. Pulmonary Medicine was consulted as well as Nephrology was consulted with regard to her acute kidney insuffici ency. Dr. Arita followed the patient along. She was treated with empiric IV antibiotics, IV stero ids, and nebulizers and briefly with the BiPAP which she really tolerated very well. Unfortunately, the patient was unfunded and without on outpatient sleep study, she is not qualified for home BiPAP. The patient was eventually transitioned to oral steroids as well as oral antibiotics and was ready f or discharge. Dr. Castro saw the patient for her renal insufficiency and followed her along. Her creatinine im proved from 2.77 to 1.26 and her GFR improved from 22 to 54. She was instructed to follow up with he r primary care physician, Dr. Tramaine Lyn post-discharge. She verbalized understanding. Medication prescriptions were sent to her pharmacy. She was seen and examined prior to discharge. PHYSICAL EXAMINATION: VITAL SIGNS: Temperature 98.4, pulse of 60, respirations 16, saturating 93% on room air, blood press ure 159/104. She has been started on new anti-hypertensive, namely Coreg as well as nifedipine. She will follow u p with her PCP with regard to changes in the doses. She also needs to follow up with the sleep clini c for outpatient sleep study in order to qualify for CPAP or BiPAP, which she desperately needs.
== END 2017-11-13 15:38 | disposition home or self-care (01) | DRG 871 ==
LOC: ERS 21:13 → IMCU/EMU 23:03 → SURG B 11-11 17:14
PROVIDERS: ADMIT Internal Medicine Addiction Medicine; ATTEND Internal Medicine Addiction Medicine
DX: A41.89 Other specified sepsis (principal); J96.21 Acute and chronic respiratory failure with hypoxia; J10.00 Influenza due to other identified influenza virus with unspecified type of pneumonia; G93.41 Metabolic encephalopathy; J96.22 Acute and chronic respiratory failure with hypercapnia; N17.9 Acute kidney failure, unspecified; E87.1 Hypo-osmolality and hyponatremia; J44.0 Chronic obstructive pulmonary disease with (acute) lower respiratory infection; E66.01 Morbid (severe) obesity due to excess calories; G47.33 Obstructive sleep apnea (adult) (pediatric); E83.52 Hypercalcemia
CPT/HCPCS: 36415; 51701; 71045; 80048; 80053; 81003; 81015; 82805; 83605; 83735; 83880; 84100; 85025; 85060; 87040; 87086; 87633; 93005; 93306; 94640; 94660; 96361; 96365; 96375; A4216; A4353; G8978-GP-CM; G8979-GP-CK; G8987-GO-CL; G8988-GO-CJ; G8996-GN-CK; G8996-GN-CM; G8997-GN-CI; G8997-GN-CK; J0456; J0696; J2185; J2930; J3370; J7050; J7506; J7611; J7620